=== PATIENT | female | born 1960 | race Caucasian/White ===

== ENCOUNTER 2023-06-26 06:55 | Day surgery (SDC) | payer BC, MEDICARE ==
[2023-06-22 11:07] LABS: BASOPHILS # (AUTO) 0.14 K/uL (0.00-0.20); BASOPHILS % (AUTO) 1.6 % (0.0-5.0); EOSINOPHILS % (AUTO) 3.5 % (0.0-8.0); IMMATURE GRANULOCYTE ABSOLUTE 0.04 K/uL (0-1); LYMPHOCYTES # (AUTO) 1.2 K/uL (1.0-4.8); MEAN CORPUSCULAR HEMOGLOBIN 28.6 pg (27.0-33.0); MEAN CORPUSCULAR HGB CONC 31.1 g/dL (32.0-36.0); MEAN CORPUSCULAR VOLUME 92.1 fL (79-99); MONOCYTES # (AUTO) 0.8 K/uL (0.1-1.0); MONOCYTES % (AUTO) 9.3 % (3.0-13.0); NEUTROPHILS # (AUTO) 6.1 K/uL (1.8-7.7); NEUTROPHILS % (AUTO) 71.1 % (40.0-77.0); PLATELET COUNT (AUTO) 182 K/uL (130-400); RED BLOOD CELL COUNT(AUTO) 3.91 MIL/uL (4.00-5.50); RED CELL DISTRIBUTION WIDTH 15.6 % (11.0-15.5); WHITE BLOOD COUNT (AUTO) 8.6 K/uL (4.8-10.8)
[2023-06-22 11:27] LABS: ALBUMIN 3.3 g/dL (3.5-5.0); BILIRUBIN,TOTAL 0.5 mg/dL (0.2-1.0); CREATININE 7.2 mg/dL (0.5-1.5); POTASSIUM 3.7 mmol/L (3.5-5.1)
[2023-06-22 12:19] LABS: INR 1.1 (0.85-1.15); PROTHROMBIN TIME 12.7 SEC (9.6-11.6)
[2023-06-22 12:20] LABS: PARTIAL THROMBOPLASTIN TIME 29.1 SEC (26.3-35.5)
[2023-06-23 14:18] VITALS: BP 117/70; PULSE 100; RESP 19
[~2023-06-26] VITALS: Ht 170.2 cm; Wt 83.2 kg
[2023-06-26] VITALS (11 sets, daily range): BP systolic 102–131; BP diastolic 53–80; PULSE 63–83; RESP 12–16
[~2023-06-26 06:55] MED LIST: ALLO100T PO; ATOR40TA69 PO; CHOL200074 PO; FOLI1TAB85 PO; FURO80TA3 PO; GABA-529 PO; LOSA100T59 PO; MAGN400T40 PO; MONT-39 PO; OMEP40CA21 PO; PARO-37 PO
[2023-06-26] MEDS ORDERED: BUPIVACAINE/PF 0.25% 30ML VIAL IJ ONE (07:40)
[2023-06-26 07:41] LABS: CREATININE 6.9 mg/dL (0.5-1.5); POTASSIUM 4.4 mmol/L (3.5-5.1)
[2023-06-26] MEDS ORDERED: LIDOCAINE PF 100MG/5ML (2%) SYRINGE 5ML ONE (07:49)
[2023-06-26] MEDS ORDERED: NEOSTIGMINE METHYLSULFATE 1MG/ML IV ONE (07:49)
[2023-06-26] MEDS ORDERED: ONDANSETRON 4MG INJ ONE (07:49)
[2023-06-26] MEDS ORDERED: DEXAMETHASONE SOD PHOSPHATE 10MG/ML 1ML VIAL ONE (07:49)
[2023-06-26] MEDS ORDERED: MIDAZOLAM HCL 1 MG/ML 2ML VIAL ONE (07:49)
[2023-06-26] MEDS ORDERED: GLYCOPYRROLATE 0.2 MG/ML 5 ML VIAL ONE (07:49)
[2023-06-26] MEDS ORDERED: ROCURONIUM BROMIDE 10MG/1ML 5ML VL ONE (07:50)
[2023-06-26] MEDS ORDERED: PROPOFOL 10 MG/ML 20ML VIAL IV ONE (07:50)
[2023-06-26] MEDS: 0.9% NACL 500ML IV.SOLN 500 ML IV ONE (08:24)
[2023-06-26] MEDS: CEFAZOLIN SODIUM 2 GM VIAL ONE (08:24)
[2023-06-26] MEDS ORDERED: PHENYLEPHRINE HCL 10 MG/ML 1ML VIAL IV ONE (08:53)
[2023-06-26] MEDS ORDERED: AMLO2.5T4 PO (09:38)
[2023-06-26] MEDS ORDERED: FENTANYL CITRATE PF 50 MCG/1 ML 2ML VIAL ONE (10:49)
[2023-06-26] MEDS ORDERED: HEPARIN 10,000 UNIT/10ML (1,000 UNIT/ML) VIAL ONE (10:49)
[2023-06-26] MEDS ORDERED: PROTAMINE SULFATE 10 MG/ML 25ML VIAL IV ONE (10:49)
== END 2023-06-26 13:16 | disposition home or self-care (01) ==
LOC: DAH 06:55
PROVIDERS: ATTEND Student in an Organized Health Care Education/Training Program
DX: I12.0 Hypertensive chronic kidney disease with stage 5 chronic kidney disease or end stage renal disease (principal); N18.6 End stage renal disease; I77.0 Arteriovenous fistula, acquired; M10.9 Gout, unspecified; K21.9 Gastro-esophageal reflux disease without esophagitis; J45.909 Unspecified asthma, uncomplicated; Z79.01 Long term (current) use of anticoagulants; Z79.899 Other long term (current) drug therapy; Z98.890 Other specified postprocedural states; Z90.710 Acquired absence of both cervix and uterus; Z90.49 Acquired absence of other specified parts of digestive tract; Z87.891 Personal history of nicotine dependence
CPT/HCPCS: 80053; 85025; 85610; 85730; 86850 ×2; 86900 ×2; 86901 ×2; 36415 ×2; 93005; 35045; 64417; 80048; 88304; A6260; A4663; J7040 ×2; A4649 ×3; C1768; J3010; J1100; J0665; J3490 ×2; J2001; J1644 ×2; J2250; J2704; J2405; J2710; J2371; J0690; C1713 ×3; A4930 ×2; A4215; A4223; A4222; A4221; J2720; A9272; G0168

== ENCOUNTER → 2024-09-05 | Outpatient (CLI) | payer MEDICARE ==
[~2024-09-05] MED LIST changes: -ALLO100T PO; +ATOR10 PO; -ATOR40TA69 PO; -CHOL200074 PO; -FOLI1TAB85 PO; -FURO80TA3 PO; -GABA-529 PO; -LOSA100T59 PO; -MAGN400T40 PO; +MAGN400T53 PO; +MYCO180T PO; -OMEP40CA21 PO; -PARO-37 PO; +PARO7.5C2 PO; +PRED10TA3 PO; +TACR0.75 PO; +VALG450T15 PO
--- NOTE | 2024-09-05 15:38 | HMCIMG ---
CT ABDOMEN/PELVIS W/O CONTRAST HISTORY: Peritoneal abscess COMPARISON: None TECHNIQUE: Multiple sequential axial images of the abdomen and pelvis were obtained from the dome of the diaphragm through symphysis pubis. Patient was given Omnipaque through intravenous route. Oral contrast was not given. FINDINGS: No pleural effusion is seen bilaterally. There is no evidence of parenchymal disease or pulmonary nodule of the visualized lower lungs. Degenerative changes of the thoracolumbar spine are present. The heart is not enlarged. Liver is enlarged measuring 24.4 cm. There are extensive bilateral hypodense nodule may be related to neoplastic process. Spleen, adrenal glands and pancreas are unremarkable. Both [place] kidneys are not seen. Conspicuity is seen in the right pelvis anteriorly without hydronephrosis. No evidence of renal stone is seen. Fecal material is seen in the colon. There are normal size retroperitoneal and mesenteric lymph nodes. No ascites is seen. Appendix is not well-seen limiting evaluation. Pelvic sidewalls are symmetric bilaterally. Bladder is poorly distended. IMPRESSION: 1. Extensive hypodense nodules throughout the liver may be related to neoplastic process that is nonspecific. The liver is enlarged.. Transplant kidney is seen in the right pelvis without processes. CT was performed with one or more following dose reduction techniques: automated exposure control, adjustment of the mA and kv according to patient's size, or use of a iterative reconstruction technique.
== END | disposition home or self-care (01) ==
LOC: RAH 13:52
PROVIDERS: ATTEND Family Medicine
DX: R16.0 Hepatomegaly, not elsewhere classified (principal); N32.89 Other specified disorders of bladder; K65.1 Peritoneal abscess; M47.815 Spondylosis without myelopathy or radiculopathy, thoracolumbar region; Z94.0 Kidney transplant status
CPT/HCPCS: 74176